=== PATIENT | female | born 1960 | race Caucasian/White ===

== ENCOUNTER 2021-05-21 19:14 | Emergency (ER) | payer OTHER ==
[~2021-05-21 19:14] MED LIST: TOPAMAX100 MG PO
[2021-05-22] MEDS ORDERED: Voltaren Gel 1 % TOP (00:38)
[2021-05-22] MEDS ORDERED: MEDROL DOSEPAK 24 MG PO (00:38)
== END 2021-05-22 00:46 | disposition home or self-care (01) ==
LOC: ER1 19:14
DX: M54.42 Lumbago with sciatica, left side (principal); I11.0 Hypertensive heart disease with heart failure; I50.9 Heart failure, unspecified; Z90.710 Acquired absence of both cervix and uterus
CPT/HCPCS: 72131; 72192; 99283

== ENCOUNTER → 2022-05-27 | Outpatient (CLI) | payer OTHER ==
[~2022-05-27] MED LIST changes: +MEDROL DOSEPAK 24 MG PO; +Voltaren Gel 1 % TOP
== END ==
LOC: EXRD 10:57
DX: R09.89 Other specified symptoms and signs involving the circulatory and respiratory systems (principal)
CPT/HCPCS: 93926; 93971